=== PATIENT | male | born 2000 | race Two or more races ===

== ENCOUNTER 2025-01-28 12:27 | Emergency (ER) | payer OTHER ==
[~2025-01-28] VITALS: Ht 170.2 cm; Wt 93.0 kg
[2025-01-28 12:44] VITALS: BP 146/90; TEMP 98.3; O2SAT 96
[2025-01-28] MEDS ORDERED: PENI500T PO (12:58)
[2025-01-28] MEDS ORDERED: NAPR-1164 PO (12:58)
[2025-01-28] MEDS ORDERED: KETOROLAC TROMETHAMINE 15 MG/ML VIAL ONE (13:09)
[2025-01-28] MEDS: KETOROLAC TROMETHAMINE 15 MG/ML VIAL IM ONE (13:13)
== END 2025-01-28 13:33 | disposition home or self-care (01) ==
LOC: ER 12:33
DX: K02.9 Dental caries, unspecified (principal)
CPT/HCPCS: 99283; 96372; J1885